=== PATIENT | female | born 1995 | race Caucasian/White ===

== ENCOUNTER 2016-08-18 10:00 | Emergency (ER) | payer MEDICAID ==
[~2016-08-18] VITALS: Ht 167.6 cm; Wt 79.0 kg
[2016-08-18 10:03] VITALS: Ht 167.6 cm; Wt 79.0 kg
[2016-08-18] MEDS ORDERED: LIDOCAINE 1% (MDV) 10 ML INJ INJ STA (10:14)
--- NOTE | 2016-08-18 10:38 | ERD ---
ER Documentation Chief Complaint Date/Time DATE: 08/18/16 TIME: 10:36 Chief Complaint LAC ON RT HAND , ACCIDENTLY WITH KNIFE HPI Patient is a 21-year-old female who was cooking today and accidentally sliced the palmar surface of her right hand today with a knife. Pain is mild. She has no numbness or tingling or loss of range of motion. She denies possibility retained foreign body. She is unsure last tetanus vaccination. ROS All systems reviewed and are negative except as per history of present illness. Allergies Allergies: Coded Allergies: No Known Allergy (Unverified , 08/18/16) PMhx/Soc Medical and Surgical Hx: pt denies Medical Hx, pt denies Surgical Hx History of Surgery: No Anesthesia Reaction: No Hx Neurological Disorder: No Hx Respiratory Disorders: No Hx Cardiac Disorders: No Hx Psychiatric Problems: No Hx Miscellaneous Medical Probl: No Hx Alcohol Use: No Hx Substance Use: No Hx Tobacco Use: No Smoking Status: Never smoker Physical Exam Vitals Vital Signs Date Time Temp Pulse Resp B/P Pulse Ox O2 Delivery O2 Flow Rate FiO2 08/18/16 10:03 97.9 86 18 131/88 97 Physical Exam Const: [] Head: Atraumatic Eyes: Normal Conjunctiva ENT: Normal External Ears, Nose and Mouth. Neck: Full range of motion..~ No meningismus. Resp: Clear to auscultation bilaterally Cardio: Regular rate and rhythm, no murmurs Skin: On the palmar surface of the right hand between the first and second digits there is a small 1 cm laceration linear, mild active bleeding. Full range of motion in the hand able to make a fist and oppose thumb to all digits, no bony abnormalities, capillary refill less than 2 seconds Results 24 hrs Current Medications Medications (Trade) Dose Ordered Sig/Jean-Pierre Route PRN Reason Start Time Stop Time Status Last Admin Dose Admin Lidocaine HCl (Lidocaine 1% (Mdv) 10 ml) 10 ml ONCE STAT INJ 08/18/16 10:14 08/18/16 10:16 DC Procedures/MDM Patient presents with small palm laceration. She is neurovascularly intact. She has good range of motion in her hand and is able to make a fist and oppose her thumb to all digits. Low suspicion for tendon injury given how superficial laceration is and physical exam. It was irrigated with copious amounts of normal saline and then prepped with Betadine and 1% lidocaine was used to anesthetize the wound and then 2 simple interrupted sutures using 3-0 Prolene were used to close the wound. Patient tolerated the procedure well and there were no complication. Wound was dressed and bandaged she was given a tetanus vaccination and recommended 2 day wound check in 7-10 days for removal of sutures. Departure Diagnosis: Primary Impression: Laceration Condition: Stable Patient Instructions: Suture Care Additional Instructions: Call your primary care doctor TOMORROW for an appointment during the next 1-2 days.See the doctor sooner or return here if your condition worsens before your appointment time. Follow up with your physician to remove the stitches:For Face wounds 5-7 days.For Elsewhere on the body 7-10 days. DEJA KILPATRICK PA-C Aug 18, 2016 10:38
[2016-08-18] MEDS ORDERED: DIPHTH/TET/ACEL PERTUSS (ADULT) 0.5 ML VIAL IM* ONE (11:00)
== END 2016-08-18 10:35 | disposition home or self-care (01) ==
LOC: FTE 10:00
DX: S61.421A Laceration with foreign body of right hand, initial encounter (principal); W26.0XXA Contact with knife, initial encounter; Y92.9 Unspecified place or not applicable; Z23 Encounter for immunization
CPT/HCPCS: 12001; 90715; Z7610; 90471

== ENCOUNTER 2016-08-24 12:27 | Emergency (ER) | payer MEDICAID, OTHER ==
[~2016-08-24] VITALS: Ht 162.6 cm; Wt 89.0 kg
[2016-08-24 12:30] VITALS: Ht 162.6 cm; Wt 89.0 kg
--- NOTE | 2016-08-24 12:58 | ERD ---
ER Documentation Chief Complaint Date/Time DATE: 08/24/16 TIME: 12:55 Chief Complaint right hand suture removal HPI This a 21-year-old female who presents the emergency department today for wound check and suture removal. Patient was seen here on August 12 and had 2 sutures placed after cutting herself at school with a knife at the [employer]. States she has not taken any medication. Denies any fevers or chills. ROS All systems reviewed and are negative except as per history of present illness. Allergies Allergies: Coded Allergies: No Known Allergy (Unverified , 08/24/16) PMhx/Soc Medical and Surgical Hx: pt denies Medical Hx, pt denies Surgical Hx History of Surgery: No Anesthesia Reaction: No Hx Neurological Disorder: No Hx Respiratory Disorders: No Hx Cardiac Disorders: No Hx Psychiatric Problems: No Hx Miscellaneous Medical Probl: No Hx Alcohol Use: No Hx Substance Use: No Hx Tobacco Use: No Smoking Status: Never smoker Physical Exam Vitals Vital Signs Date Time Temp Pulse Resp B/P Pulse Ox O2 Delivery O2 Flow Rate FiO2 08/24/16 12:30 98.1 78 20 114/67 99 Physical Exam Const: No acute distress Head: Atraumatic Eyes: Normal Conjunctiva ENT: Normal External Ears, Nose and Mouth. Neck: Full range of motion..~ No meningismus. Resp: Clear to auscultation bilaterally Cardio: Regular rate and rhythm, no murmurs Abd: Soft, non tender, non distended. Normal bowel sounds Skin: Right hand with evidence of laceration with sutures in place. Very mild erythema. No purulent drainage. Wound well-healed and well approximated full active range of motion of hand and fingers. Pulses 2+. Neur: Awake and alert Psych: Normal Mood and Affect Results 24 hrs Current Medications Medications (Trade) Dose Ordered Sig/Jean-Pierre Route PRN Reason Start Time Stop Time Status Last Admin Dose Admin Ibuprofen (Motrin) 800 mg ONCE ONCE PO 08/24/16 13:00 08/24/16 13:01 Procedures/MDM This a 21-year-old female who presents the emergency department today for wound check and suture removal. Patient was seen here on August 12 and had 2 sutures placed for a wound she sustained with a knife while cutting something at her [employer]. Patient is afebrile and otherwise well-appearing. There is no purulent drainage. There is very mild localized erythema. Is only been 6 days however the wound is well-healed and well approximated and I feel that is appropriate to remove the sutures at this time. Patient tolerated the procedure well and there were no complications. Low suspicion for sepsis, deep space infection, cellulitis wound was dressed with a Band-Aid. At this time the patient is stable for discharge and outpatient management. Patient should follow up with their PCP in the next 1-2 days. They may return to the emergency department sooner for any persistent or worsening of symptoms. Patient understood and agreed with the plan. Departure Diagnosis: Primary Impression: Encounter for removal of sutures Condition: Fair Patient Instructions: Suture Removal, No Complication Referrals: [facility] YOU HAVE RECEIVED A MEDICAL SCREENING EXAM AND THE RESULTS INDICATE THAT YOU DO NOT HAVE A CONDITION THAT REQUIRES URGENT TREATMENT IN THE EMERGENCY DEPARTMENT. FURTHER EVALUATION AND TREATMENT OF YOUR CONDITION CAN WAIT UNTIL YOU ARE SEEN IN YOUR DOCTORS OFFICE WITHIN THE NEXT 1-2 DAYS. IT IS YOUR RESPONSIBILITY TO MAKE AN APPOINTMENT FOR FOLOW-UP CARE. IF YOU HAVE A PRIMARY DOCTOR --you should call your primary doctor and schedule an appointment IF YOU DO NOT HAVE A PRIMARY DOCTOR YOU CAN CALL OUR PHYSICIAN REFERRAL HOTLINE AT IF YOU CAN NOT AFFORD TO SEE A PHYSICIAN YOU CAN CHOSE FROM THE FOLLOWING [facility] [address] [facility]. [facility] [address] [facility] [facility] [address] [facility] [facility] [address] [facility]. [facility] [address] [facility]. [facility]. [address] Additional Instructions: Call your primary care doctor TOMORROW for an appointment during the next 1-2 days.See the doctor sooner or return here if your condition worsens before your appointment time. Keep wound clean ROBERT BROWN PA-C Aug 24, 2016 12:58
[2016-08-24] MEDS ORDERED: IBUPROFEN 800 MG TAB PO ONE (13:00)
== END 2016-08-24 13:05 | disposition home or self-care (01) ==
LOC: FTE 12:27
DX: Z48.02 Encounter for removal of sutures (principal)
CPT/HCPCS: 99281